=== PATIENT | female | born 1980 | race Two or more races ===

== ENCOUNTER 2019-01-19 20:34 | Emergency (ER) | payer BC, OTHER ==
[~2019-01-19] VITALS: Ht 165.1 cm; Wt 61.2 kg
[2019-01-19 20:40] VITALS: BP 137/69
== END 2019-01-19 23:15 | disposition home or self-care (01) ==
LOC: ER 20:36
DX: M25.531 Pain in right wrist (principal); M79.631 Pain in right forearm; M25.561 Pain in right knee; V49.49XA Driver injured in collision with other motor vehicles in traffic accident, initial encounter; Y93.89 Activity, other specified; Y92.413 State road as the place of occurrence of the external cause; Y99.8 Other external cause status
CPT/HCPCS: 73090-TC; 73110; 73564-TC